=== PATIENT | female | born 1970 | race Caucasian/White ===

== ENCOUNTER 2024-06-11 10:31 | Outpatient (CLI) | payer OTHER, SELFPAY ==
--- NOTE | ~2024-06-11 | US_ITS ---
EXAMINATION:US venous doppler LE BI INDICATION:Leg swelling TECHNIQUE: Multiple grayscale, color flow and Doppler images of the right and left lower extremity de ep venous systems were obtained and reviewed. COMPARISON:No prior studies for comparison. FINDINGS: The common femoral, superficial femoral and popliteal veins demonstrate normal respiratory variation, augmentation and compressibility. Color flow is also seen within the posterior tibial, pe roneal, greater saphenous and profunda veins. There is a Rapp's cyst the right popliteal fossa measu ring 4 cm. IMPRESSION: 1: No lower extremity deep venous thrombosis. Reviewed, dictated and finalized at location B.
== END 2024-06-11 10:32 | disposition home or self-care (01) ==
LOC: ANHIMG 10:32
PROVIDERS: PCP Family Medicine; Visit Provider Physician Assistant
DX: M79.89 Other specified soft tissue disorders (principal); Z98.890 Other specified postprocedural states
CPT/HCPCS: 93970

== ENCOUNTER 2024-07-26 07:48 | Outpatient (CLI) | payer OTHER, SELFPAY ==
--- NOTE | 2024-07-26 07:51 | ECHO_ITS ---
Patient Info Name: Katarina Taylor Age: 54 years : 1970 Gender: Female Ht: 64 in Wt: 180 lbs BSA: 1.95 m2 HR: 77 bpm BP: 134 / 90 mmHg Technical Quality: Good Exam Date: 07/26/2024 8:04 AM Exam Location: Echo Lab Patient Status: Outpatient Admit Date: 07/26/2024 Staff Ordering Physician: Jarrod Hameed PA-C Regional Transfer Liaison: Radha Skelton RDCS Attending Provider: Jarrod Hameed PA-C Referring Physician: Yoseph MONET; Exam Type: CA echo doppler color flow Study Info Indications R60.0 - Localized edema Complete two-dimensional, color flow and Doppler transthoracic echocardiogram is performed. Strain analysis performed. Summary 1. Complete two-dimensional, color flow and Doppler transthoracic echocardiogram is performed. 2. Left ventricular chamber dimension is normal. 3. Left ventricular systolic function is normal, estimated at 60-65%. 4. The left ventricular diastolic function is grade I diastolic dysfunction. 5. E/e' 8 is minimally elevated. 6. Global longitudinal strain is normal at -20.2%. 7. There is mild aortic valve sclerosis. 8. There is trace mitral valve regurgitation. 9. No pulmonary hypertension, estimated pulmonary arterial systolic pressure is 29 mmHg. Left Ventricle E/e' 8 is minimally elevated. Global longitudinal strain is normal at -20.2%. Left ventricular chamber dimension is normal. Left ventricular systolic function is normal, estimated at 60-65%. The left ventricular diastolic function is grade I diastolic dysfunction. Right Ventricle Right ventricular systolic function is normal and with normal TAPSE 2.5 cm. Right ventricular chamber dimension is normal. Left Atria Left atrial chamber dimension is normal. Right Atria Right atrial chamber dimension is normal. Aortic Valve The aortic valve is trileaflet. There is mild aortic valve sclerosis. There is no aortic valve stenosis. There is no aortic valve regurgitation. Pulmonic Valve There is no pulmonic regurgitation. Mitral Valve There is no mitral valve stenosis. There is trace mitral valve regurgitation. Tricuspid Valve There is no tricuspid valve regurgitation. No pulmonary hypertension, estimated pulmonary arterial systolic pressure is 29 mmHg. Pericardium/Pleural There is no pericardial effusion. Inferior Vena Cava Normal inferior vena cava with >50% collapse upon inspiration consistent with normal right atrial pressure, 5 mmHg. Aorta The aortic root size at the sinus of Valsalva is normal. Left Ventricular Outflow Tract Name Value Normal LVOT 2D LVOT Diameter 1.9 cm LVOT Doppler LVOT Peak Gradient 4 mmHg LVOT Mean Gradient 2 mmHg LVOT VTI 21 cm LVOT VTI/AV VTI Ratio 0.8 LVOT Stroke Volume 57 ml LVOT CO 4.6 l/min LVOT CI 2.4 l/min/m2 Pulmonic Valve Name Value Normal RVOT Doppler
== END 2024-07-26 07:49 | disposition home or self-care (01) ==
PROVIDERS: PCP Family Medicine; Visit Provider Physician Assistant
DX: R60.0 Localized edema (principal); I51.89 Other ill-defined heart diseases; I35.8 Other nonrheumatic aortic valve disorders
CPT/HCPCS: 93306

== ENCOUNTER 2025-08-12 08:41 | Outpatient (CLI) | payer OTHER, SELFPAY ==
--- NOTE | ~2025-08-12 | MM_ITS ---
EXAMINATION: MM diagnostic jose armando LT w joon INDICATION: 55-year old female; BI-RADS 0, callback to evaluate Left breast mass COMPARISON: 06/14/2025 through 05/17/2023 TECHNIQUE: Digital breast tomosynthesis True lateral view and spot compression CC and MLO views of Left breast were obtained with computer-aided detection to assist in interpretation of the study. FINDINGS: There are scattered areas of fibroglandular density. The mass seen in the outer Left breast on the screening mammogram effaces on additional views, compatible with normal overlapping tissue.. IMPRESSION: Left breast finding represents superimposition of fibroglandular tissue. No further investigation necessary. RECOMMENDATION: Annual screening mammography in 12 months BI-RADS 2, BENIGN Reviewed, dictated and finalized at location C. IMPRESSION: Left breast finding represents superimposition of fibroglandular tissue. No fur ther investigation necessary. RECOMMENDATION: Annual screening mammography in 12 months BI-RADS 2, BENIGN
== END 2025-08-12 08:42 | disposition home or self-care (01) ==
LOC: MICIMG 08:41
PROVIDERS: PCP Family Medicine; Visit Provider Obstetrics & Gynecology
DX: R92.322 Mammographic fibroglandular density, left breast (principal); R92.8 Other abnormal and inconclusive findings on diagnostic imaging of breast
CPT/HCPCS: 77061; 77065; G0279

== ENCOUNTER 2025-11-02 11:02 | Day surgery (SDC) | payer OTHER, SELFPAY ==
[2025-10-28 11:07] VITALS: BMI 32.1
--- OUTSIDE RECORDS SUMMARY | 2025-11-02 11:05 | XMS_ITS | Clinical Summary ---
Author Organization [facility] Address [address] [place] [address] Care Team Providers Care Janitor And Cleaner Name Role Phone Henrik Guzman MD Primary Care Provider [phone] Allergies No known active allergies Medications multi vitamin/mineral s (THERA-M ENHANCED) tablet Take 1 tablet by mouth daily. 7 Active loratadine 10 MG tablet Take 1 tablet (10 mg total) by mouth daily as needed. 7 Active Na sulfate-K sulfate-Mg sulfate (SUPREP BOWEL PREP KIT) 17.5-3.13-1.6 GM/177ML SolutionIndicat ions:Screening for colon cancer,Hx of colonic polyp,Family hx of colon cancer Take 177 mLs by mouth every 12 (twelve) hours. Per GI instructions 354 mL 3 Active Additional Information Patient not taking.Reported on 12/27/2023 Active Problems Problem Noted Date Diagnosed Date Screening for colon cancer 05/27/2023 Overview (05/27/2023): Added automatically from request for surgery [id number] Hx of colonic polyp 05/27/2023 Overview (05/27/2023): Added automatically from request for surgery [id number] Family hx of colon cancer 05/27/2023 Overview (05/27/2023): Added automatically from request for surgery [id number] Primary osteoarthritis of right knee 03/29/2023 Peripheral tear of medial me niscus of right knee as current injury, initial encounter 03/29/2023 Stress fracture of right tib ia with delayed healing, subsequent encounter 03/29/2023 Stress fracture of right fem ur with delayed healing, subsequent encounter 03/29/2023 Rapp's cyst of knee, right 03/29/2023 Allergic rhinitis 06/16/2017 Resolved Problems Problem Noted Date Diagnosed Date Resolved Date Lumbar radiculopathy 10/28/2022 022 Encounter for preventive health examination 11/29/2016 08/01/2020 Immunizations Immunization Administration Dates Next Due MODERNA COVID-19 (12+) MRNA, LNP-S, PF, 100 MCG/ 0.5 ML DOSE 03/27/2021,02/27/2021 MODERNA COVID-19 (TYPE INSPECTOR ADRIAN FOREIGN), MRNA, LNP-S, PF, 50 MCG/ 0.25 ML DOSE 11/17/2021 Tdap (Boostrix) 06/16/2020 Family History Medical History Relation Comments Colon Cancer Cousin 1 Colon Cancer Cousin 2 Heart Attack Father Cancer Mother colon, rectum Diabetes Mother Breast Cancer Neg Hx Relation Status Comments Cousin 1 Alive Cousin 2 Alive Father Mother Alive Social History Tobacco Use Types Packs/Day Years Used Date Smoking Tobacco: Never Passive Smoke Exposure: Never Smokeless Tobacco: Never Tobacco Cessation:Counseling Given: Not Answered Comments:Never Smoked Alcohol Use Standard Drinks/Week Comments No 0 (1 standard drink = 0.6 oz pur e alcohol) None AUDIT-C Answer Date Recorded Frequency of Alcohol Consumption Never 12/20/2018 Average Number of Drinks Not on file 019 Frequency of Binge Drinking Not on file 11/23 PHQ-2 Answer Date Recorded Patient Health Questionnaire-2 Score 0 12/27/2023 Comments No Sex and Gender Information Value Date Recorded Sex Assigned at Not on file Legal Sex Female 4:23 PM CDT Gender Identity Not on file Sexual Orientation Not on file Last Filed Vital Signs Vital Sign Reading Time Taken Comments Blood Pressure 126/81 12/27/2023 10:24 AM FACILITATOR Pulse 101 12/27/2023 10:24 AM FACILITATOR Temperature 36.2 C (97.2 F) 12/27/2023 10:24 AM FACILITATOR Respiratory Rate 20 12/27/2023 10:24 AM FACILITATOR Oxygen Saturation 84% 09/14/2023 9:40 AM CDT Inhaled Oxygen Concentration - - Weight 89.4 kg (197 lb) 12/27/2023 10:24 AM FACILITATOR Height 162.6 cm (5' 4) 12/27/2023 10:24 AM FACILITATOR Body Mass Index 33.81 12/27/2023 10:24 AM FACILITATOR Plan of Treatment Health Maintenance Due Date Last Done Comments Cervical Cancer Screening Pap Smear (Age 30 to 64) Every 3 Years 1970 Hepatitis C 01/24/1986 Hepatitis B Vaccines (1 of 3 - 19+ 3-dose series) 01/24/1987 Pneumococcal Vaccine: 50+ Years (1 of 1 - PCV) 01/24/2018 Zoster Vaccines (1 of 2) 01/24/2018 Annual Physical 04/24/2021 04/24/2020, 06/19/2019 Cervical Cancer Screening Pap with HPV Testing (Age 30 to 64) Every 5 Years 10/24/2022 10/24/2017 Cervical Cancer Screening with HPV 10/24/2022 PHQ-2 (Physician Glasco) 11/21/2024 12/27/2023 COVID-19 Vaccine ( season) 2025 11/17/2021, 03/27/2021, 02/27/2021 Influenza Adult (#1) 2025 Mammogram Screening 06/14/2027 06/14/2025, 05/21/2024, 05/17/2023, Additional history exists DTaP, Tdap and Td Vaccines (2 - Td or Tdap) 06/16/2030 06/16/2020 Colorectal Cancer Screening Colonoscopy (10 Years) 09/14/2033 09/14/2023, 08/31/2017, Hepatitis A Vaccines Aged Out No long er eligible based on patient's age to complete this topic Meningococcal B Vaccine Aged Out No l onger eligible based on patient's age to complete this topic Meningococcal Vaccine Aged Out No nelly rachele eligible based on patient's age to complete this topic RSV Immunizations Under 20 Months Aged Out No longer eligible based on patient's age to complete this topic Procedures Procedure Name Priority Date/Time Associated Diagnosis Comments MG SCREENING W IDRIS REKHA DIGI Routine 06/14/2025 8:35 AM CDT Screening mammogram for breast cancer HPV MRNA E6/E7 Routine 10/24/2017 5:45 PM FACILITATOR COLONOSCOPY GENERIC (SCAN ORDER) Routine 08/31/2017 12:00 AM CDT from Last 3 Months or Most Recently Relevant to Health Maintenance Results * MG SCREENING W IDRIS REKHA DIGI (06/14/2025 8:35 AM CDT) Anatomical Region Laterality Modality Breast Bilateral Mammography 06/14/2025 11:3 2 AM CDT Impressions 06/14/2025 11:33 AM CDT =====IMPRESSION:===== Small left breast mass. Compression view and possible ultrasound. ASSESSMENT: ACR BI-RADS 0 - INCOMPLETE: NEEDS ADDITIONAL IMAGING EVALUATION Recommendation: 1: Additional Imaging Left COMMENTS: Ordered By: LUOISA BAUER Interpreted By: Kiel Dorantes MD, 06/14/2025 11:32 AM Narrative 06/14/2025 11:33 [place] [address] EXAMINATION: Digital bilateral screening mammogram with 3-D tomosynthesis EXAM DATE/TIME: 06/14/2025 7:55 AM REASON FOR EXAM: Screening COMPARISON: Priors including May 2024, April 2023, January 2022. TECHNIQUE: Digital screening mammography of both breasts was performed in addition to 3-D Tomosynthesis technique. This study was read with the assistance of a computer-aided detection system. TISSUE DENSITY: There are scattered areas of fibroglandular density. FINDINGS: On the right there is no suspicious masses, malignant appearing calcifications, skin thickening or other abnormalities are present. No significant change from the prior exam. The lateral superior left breast is a small mass that is present. Compression view and possible ultrasound. us Louisa Bauer MD MAMMO Final Result * HPV MRNA E6/E7 (10/24/2017 5:45 PM FACILITATOR) HPV MRNA E6/E7 Not Detected NOT DETECTED 10/27/2017 11:45 PM FACILITATOR [employer] GRAJEDAIndiraDUSTINASHLEIGH PARTIDA Comment: This test was performed using the APTIMA(R) HPV Assay([employer]This assay detects E6/E7 viral messenger RNA (mRNA)from 14 high-risk HPV types (16,18,31,33,35,39,45,51,52,56,58,59,66,68).For additional information please refer to:http://education.RuckPack/faq/BOT617d9(This link is being provided for informational/educational purposes only.)Test Performed by [facility],[address] [place] [id number] Simpson M.D., Ph.D., Director of [phone], [facility] [id number] FLUID SPECIMEN / Unknown 10/24/2017 5:45 PM FACILITATOR 10/24/2017 5:45 PM FACILITATOR us Generic Conversion Md BRAVO PATHOLOGY/CYTOLOGY WHIT VILLEGAS Final Result [employer] [address] , * COLONOSCOPY (08/31/2017 12:00 AM CDT) 08/31/2017 us Documents Scanned SCANNING Final Result [facility] from Last 3 Months or Most Recently Relevant to Health Maintenance Insurance [facility] Advance Directives Documents on File Type Date Recorded Patient Photographer Motion Picture Expl anation Advance Directives and Living Will 05/16/2018 12:00 AM POWER OF [employer] P[employer]ER [employer] R HE[employer] CARE Advance Directives and Living Will 05/16/2018 12:00 AM POWER OF [employer] R HE[employer] CARE Advance Directives and Living Will 11/10/2017 12:00 AM POWER OF [employer] R HE[employer] CARE Advance Directives and Living Will 11/10/2017 12:00 AM POWER OF [employer] R HE[employer] CARE Advance Directives and Living Will 10/24/2017 12:00 AM POWER OF [employer] R HE[employer] CARE Advance Directives and Living Will 10/24/2017 12:00 AM POWER OF [employer] R HE[employer] CARE Advance Directives and Living Will 08/31/2017 12:00 AM POWER OF [employer] R HE[employer] C[employer] Advance Directives and Living Will 08/31/2017 12:00 AM POWER OF [employer] R HE[employer] CARE Care Teams Janitor And Cleaner Relationship Specialty Start Date End Date Henrik Guzman MD [address] [place] [address] PCP - General 09/07/23
--- OUTSIDE RECORDS SUMMARY | 2025-11-02 11:05 | XMS_ITS | Encounter Summary ---
Author Organization [facility] Address [facility] [place] [address] Care Team Providers Care Mechanical Ordnance Assembler Name Role Phone Stuart Reaves MD Primary Care Provider Henrik Guzman MD Primary Care Provider [phone] Encounter Details Date Type Department Care Team (Late st Contact Info) Description 12/21/2022 MyChart Message Enc [facility] Medical [facility] Orthopedic & Sports Medicine - [place] [address] [place] [address] John Garnett MD [address] [address] [place], [place] [id number] surgery date Social History Tobacco Use Types Packs/Day Years Used Date Smoking Tobacco: Never Passive Smoke Exposure: Never Smokeless Tobacco: Never Comments:Never Smoked Alcohol Use Standard Drinks/Week Comments No 0 (1 standard drink = 0.6 oz pur e alcohol) NA AUDIT-C Answer Date Recorded Frequency of Alcohol Consumption Never 12/20/2018 Average Number of Drinks Not on file 019 Frequency of Binge Drinking Not on file 11/23 PHQ-2 Answer Date Recorded Patient Health Questionnaire-2 Score 0 12/09/2022 Comments No Sex and Gender Information Value Date Recorded Sex Assigned at Not on file Legal Sex Female 4:23 PM CDT Gender Identity Not on file Sexual Orientation Not on file COVID-19 Exposure Response Date Recorded In the last 10 days, have yo u been in contact with someone who was confirmed or suspected to have Coronavirus/COVID-19? No / Unsure 12/09/2022 8:40 AM CHEMISTRY QUALITY CONTROL TECHNICIAN documented as of this encounter Plan of Treatment Not on file documented as of this encounter Visit Diagnoses Not on filedocumented in this encounter Additional Health Concerns Assessment Noted Time PHQ-9 Depression Total Score: 0 09/15/20 21 2:06 PM CDT documented as of this encounter Care Teams Mechanical Ordnance Assembler Relationship Specialty Start Date End Date Stuart Reaves MD [address] [facility] [address] [place] [address] PCP - General FAMILY PRACTICE 06/05/19 09/06/23 Henrik Guzman MD [address] [address] [address] [place] [address] PCP - General 09/07/23 documented as of this encounter
--- OUTSIDE RECORDS SUMMARY | 2025-11-02 11:05 | XMS_ITS | Encounter Summary ---
Author Organization [facility] Address [facility] [place] [address] Care Team Providers Care Hot Metal Mixer Operator Helper Name Role Phone Stuart Reaves MD Primary Care Provider Henrik Guzman MD Primary Care Provider [phone] Encounter Details Date Type Department Care Team (Late st Contact Info) Description 12/15/2022 MyChart Message Enc [facility] Medical Group Orthopedic & Sports Medicine - [place] [address] [place], [place] [id number] [phone] John Garnett MD [address] [address] [place], [place] [id number] CPT code Social History Tobacco Use Types Packs/Day Years [...] Coronavirus/COVID-19? No / Unsure 12/09/2022 8:40 AM ASSESSMENT SERVICES MANAGER documented as of this encounter Plan of Treatment Not on file documented as of this encounter Visit Diagnoses Not on filedocumented in this encounter Additional Health Concerns Assessment Noted Time PHQ-9 Depression Total Score: 0 09/15/20 21 2:06 PM CDT documented as of this encounter Care Teams Hot Metal Mixer Operator Helper Relationship Specialty Start Date End Date Stuart Reaves MD [address] [facility] [address] [place] [address] PCP - General FAMILY PRACTICE 06/05/19 09/06/23 Henrik Guzman MD [address] [address] [address] [place] [address] PCP - General 09/07/23 documented as of this encounter
--- OUTSIDE RECORDS SUMMARY | 2025-11-02 11:05 | XMS_ITS | Encounter Summary ---
Author Organization [facility] Address [facility] [place] [address] Care Team Providers Care Lead Sprinkler Name Role Phone Stuart Reaves MD Primary Care Provider Henrik Guzman MD Primary Care Provider [phone] Encounter Details Date Type Department Care Team (Latest Contact Info) Description 04/19/2023 Ondangot Message Enc [facility]ispecialty Care - [facility] [address] [facility], [address] [place] [phone] Louis Jimenes MD [address] [place] [address] 5 digit procedure code Social History Tobacco Use Types Packs/Day [...] Date Recorded Patient Health Questionnaire-2 Score 0 04/15/2023 Comments No Sex and Gender Information Value Date Recorded Sex Assigned at Not on file Legal Sex Female 4:23 PM CDT Gender Identity Not on file Sexual Orientation Not on file COVID-19 Exposure Response Date Recorded In the last 10 days, have yo u been in contact with someone who was confirmed or suspected to have Coronavirus/COVID-19? No / Unsure 04/20/2023 9:25 AM CDT documented as of this encounter Plan of Treatment Not on file documented as of this encounter Visit Diagnoses Not on filedocumented in this encounter Additional Health Concerns Assessment Noted Time PHQ-9 Depression Total Score: 0 09/15/20 21 2:06 PM CDT documented as of this encounter Care Teams Lead Sprinkler Relationship Specialty Start Date End Date Stuart Reaves MD [address] [facility] [address] [place] [address] PCP - General FAMILY PRACTICE 06/05/19 09/06/23 Henrik Guzman MD [address] [address] [address] [place] [address] PCP - General 09/07/23 documented as of this encounter
--- OUTSIDE RECORDS SUMMARY | 2025-11-02 11:05 | XMS_ITS | Clinical Summary ---
Author Organization [facility] Address [address] [place] [address] Care Team Providers Care Drier Name Role Phone Stuart Reaves MD Primary Care Provider + Allergies No known active allergies Medications loratadine 10 mg capsuleIndicati ons:Allergic Conjunctivitis, Allergic Rhinitis Take 1 tablet by mouth chief port director before breakfast Active multivitamin with minerals tabletIndicatio ns:Mineral Deficiency Prevention,Judie min Deficiency Prevention Take 1 tablet by mouth chief port director before breakfast Active Active Problems Problem Noted Date Diagnosed Date Acute medial meniscus tear of right knee 024 Surgical History Surgery Date Site/Laterality Comments SECTION COLONOSCOPY 11/21/2022 - 11/20/2023 Medical History Medical History Date Comments Generalized headaches Family History Medical History Relation Name Comments Heart attack Father Colon cancer Mother Anesthesia problems Neg Hx Relation Name Status Comments Father Mother Social History Tobacco Use Types Packs/Day Years Used Date Smoking Tobacco: Never Passive Smoke Exposure: Never Smokeless Tobacco: Never Tobacco Cessation:Counseling Given: Not Answered Alcohol Use Standard Drinks/Week Comments Yes 0 (1 standard drink = 0.6 oz pur e alcohol) socially AUDIT-C Answer Date Recorded Q1: How often do you have a drink containing alc ohol? Monthly or less 01/20/2024 Q2: How many drinks containi ng alcohol do you have on a typical day when you are drinking? 1 or 2 01/20/2024 Q3: How often do you have si x or more drinks on one occasion? Never 01/20/2024 Personal Safety Answer Date Recorded Have you ever been in or are you currently in a harmful physical or emotional relationship or is someone making you feel afraid or unsafe? Denies 01/20/2024 Comments No Sex and Gender Information Value Date Recorded Sex Assigned at Not on file Legal Sex Female 7:58 PM STOCK TRADER Gender Identity Not on file Sexual Orientation Not on file Last Filed Vital Signs Vital Sign Reading Time Taken Comments Blood Pressure 142/89 01/20/2024 4:21 PM STOCK TRADER Pulse 79 01/20/2024 4:21 PM STOCK TRADER Temperature 36.2 C (97.2 F) 01/20/2024 3:08 PM STOCK TRADER Respiratory Rate 16 01/20/2024 4:21 PM STOCK TRADER Oxygen Saturation 95% 01/20/2024 4:21 PM STOCK TRADER Inhaled Oxygen Concentration - - Weight 86.2 kg (190 lb) 01/20/2024 11:03 AM STOCK TRADER Height 162.6 cm (5' 4) 01/20/2024 11:03 AM STOCK TRADER Body Mass Index 32.61 01/20/2024 11:03 AM STOCK TRADER Plan of Treatment Health Maintenance Due Date Last Done Comments Cervical Cancer Screening 1968 Colon Cancer Screening-Colonoscopy 1968 Depression Screening 1968 Hepatitis C Screening 1968 Hepatitis B Screening 01/24/1986 Regular Well Visit/Exam 18-64 01/24/1986 Zoster Vaccine (1 of 2) 01/24/2018 Breast Cancer Screening-Mammogram 05/21/2025 05/21/2024, 05/21/2024, 05/17/2023, Additional history exists Covid-19 Vaccine ( season) 2025 11/17/2021, 03/27/2021, 02/27/2021 Influenza Vaccine (#1) 2025 DTaP/Tdap/Td Vaccine (2 - Td or Tdap) 06/16/2030 06/16/2020 Pneumococcal vaccine <65 Aged Out No longer eligible based on patient's age to complete this topic Medical Devices Implanted Type Area Electronic Components Assembler Device Identifier Shelf Expiration Date Model / Serial / Lot [employer] Footprint Ultra 4.5mm [place] Suture [place] [id number] - [id number] Implanted:Qty : 1 on 01/20/2024 by Kervin Scott MD at [facility] [place]: Knee [employer] [id number] 09/21/2028 [id number] / / [id number] Procedures Procedure Name Priority Date/Time Associated Diagnosis Comments SCREENING MAMMOGRAM BILATERAL W RAGHU Schedule Routine, Read Routine (OP Routine) 06/08/2021 11:30 AM CDT Abnormal mammography from Last 3 Months or Most Recently Relevant to Health Maintenance Results * Screening Mammogram Bilateral W Raghu (06/08/2021 11:30 AM CDT) Anatomical Region Laterality Modality Breast Bilateral Mammography Narrative 06/09/2021 9:11 AM CDT Mammogram Technique: Bilateral Digital Breast Tomosynthesis, Bilateral C-view 2D Screening mammogram. Views obtained: bilateral craniocaudal and bilateral mediolateral oblique. Computer Aided Detection was performed. Mammogram Findings: The present examination has been compared to prior imaging studies performed at [facility] on 02/16/2021, and at [facility]. on 06/05/2019 and 06/06/2020. There are scattered areas of fibroglandular density. There is no suspicious abnormality in either breast. Impression: There is no mammographic evidence of malignancy. Annual screening mammography is recommended. OVERALL FINAL ASSESSMENT: BI-RADS CATEGORY 1: Negative. Procedure Note Marisabel De La Paz MD - 06/09/2021 Mammogram Technique: Bilateral Digital Breast Tomosynthesis, Bilateral C-view 2D Screening mammogram. Views obtained: bilateral craniocaudal and bilateral mediolateral oblique. Computer Aided Detection was performed. Mammogram Findings: The present examination has been compared to prior imaging studies performed at [facility] on 02/16/2021, and at [facility]. on 06/05/2019 and 06/06/2020. There are scattered areas of fibroglandular density. There is no suspicious abnormality in either breast. Impression: There is no mammographic evidence of malignancy. Annual screening mammography is recommended. OVERALL FINAL ASSESSMENT: BI-RADS CATEGORY 1: Negative. Alisson Horne MD PhD IMG MAMMO PROCEDURES Final Result from Last 3 Months or Most Recently [place]vant [place] [address] Care Teams Drier Relationship Specialty Start Date End Date Stuart Reaves MD PCP - General Family Medicine 06/19/20
--- OUTSIDE RECORDS SUMMARY | 2025-11-02 11:05 | XMS_ITS | Patient Health Record ---
Author Organization [facility] [facility] Address [address] [facility] [address] [place] [address] Care Team Providers Care Wildlife Rehabilitator Name Role Phone Henrik Guzman MD Primary Care Provider Gill Zeng Unavailable [phone] Carine Ramos Unavailable [phone] Allergies No Known Allergies Reason For Referral No Information Social History Tobacco Use: Social History Observation Description Date Details (start date - stop date) Never Smoker NA - NA Sex Assigned At : Social History Observation Description Sex Assigned At Female Social History Miscellaneous: Social Info Question Answer Notes Safety issues: Are there any firearms in the house? Ye s Social History Social Info Question Answer Notes Household: Marital Status: Number of Adults in household: 2 Number of Children in Household: 1 Level of Education: Professional Schools/Masters /PhD Household: Social Info Question Answer Notes Household Marital status: Drug/Alcohol: Social Info Question Answer Notes Drugs Have you used drugs other than those for medical reasons in the past 12 months? No AUDIT-C (Standard) Did you have a drink containing alcohol in the past year? Yes Points 1 Interpretation Positive How often did you have six or more drinks on one occasion in the past year? Never (0 point) How many drinks did you have on a typical day when you were drinking in the past year? 1 or 2 drinks (0 point) How often did you have a drink containing alcohol in the past year? Monthly or less (1 point) Caffeine Intake: 1-2 cups per day Tobacco Use: Social Info Question Answer Notes Tobacco Control (Standard) Tobacco use: Nonsmoker Additional Details Category Social Info Options Details Drug/Alcohol: Do you smoke marijuana? No Do you drink alcohol? Socially Problems Problem Type SNOMED Code ICD Code Onset Dates Problem Status W/U Status Risk Notes Problem Adjustment disorder with mixed anxiety and depressed mood (940018219) Adjustment disorder with mixed anxiety and depressed mood (F43.23) Active confirmed Vital Signs Heart Rate 87 /min 09/02/2025 Height-cm 162.56 cm 09/02/2025 Blood pressure diastolic 87 mm Hg 09/02/2025 Weight-kg 89.36 kg 09/02/2025 Height 64 in 09/02/2025 Blood pressure systolic 139 mm Hg 09/02/2025 Weight 197 lbs 09/02/2025 BMI 33.81 kg/m2 09/02/2025 Encounters Encounter Location Date Provider [facility] [address] [facility] [address] [place] [address] 09/02/2025 Gill Velasco Adjustment disorder with mixed anxiety and depressed mood F43.23 [facility] [address] [address] 10/01/2025 Carine Ramos Adjustment disorder with mixed anxiety and depressed mood F43.23 Assessments Encounter Date Diagnosis (ICD Code) Assessment Notes Treatment Notes Treatment Clinical Notes Section Notes 09/02/2025 Adjustment disorder with mixed anxiety and depressed mood (ICD-10 - F43.23) Patient here to establish care for therapy. Declines need for medication management at this time. Scheduled for therapy with Carine on 10/01 Plan to follow up as needed for medication management 10/01/2025 Adjustment disorder with mixed anxiety and depressed mood (ICD-10 - F43.23) Plan Of Treatment Next Appt Details Provider Name:Carine Ana Albajazmin, 11/11/2025 11:00:00 AM, [address], [address], [address], Provider Name:Carine Ana Albajazmin, 12/09/2025 09:00:00 AM, [employer] [address], [address], Provider Name:Carine Ana Albajazmin, 01/06/2026 09:00:00 AM, [employer], [address], [address], Provider Name:Carine Ana Albajazmin, 02/07/2026 09:00:00 AM, [employer] [address], [address], Insurance Providers Payer Name Payer Address Payer Phone Subscriber Number Group Number Insured Name Patient Relationship to Insured Coverage Start Date Coverage End Date [facility] [address] [place] [phone] [id number] Katarina Taylor Self - patient is the insured Medical (General) History Medical History History ICD Code abdominal aortic aneurysm: No atrial fibrillation: No chronic fatigue syndrome: No hyperlipidemia: No hypertension: No Parkinson's disease: No restless leg syndrome: No stroke: No subdural hematoma: No type 1 diabetes mellitus: No type 2 diabetes mellitus: No vitamin B12 deficiency: No vitamin D deficiency: No Surgical History Surgery Date(Month/Year) c section Hospitalization History Reason Date(Month/Year) surgeries
--- OUTSIDE RECORDS SUMMARY | 2025-11-02 11:05 | XMS_ITS | Encounter Summary ---
Author Organization [facility] Address [facility] [place] [address] Care Team Providers Care Corporate Affairs Manager Name Role Phone Stuart Reaves MD Primary Care Provider [phone] Henrik Guzman MD Primary Care Provider [phone] Encounter Details Date Type Department Care Team (Late st Contact Info) Description 03/27/2023 New Relict Message Enc [facility] Family & Internal Medicine [facility] [address] [place] [address] Stuart Reaves MD [address] [address] clearance for surgery Social History Tobacco Use Types Packs/Day Years [...] suspected to have Coronavirus/COVID-19? No / Unsure 03/29/2023 8:18 AM CDT documented as of this encounter Plan of Treatment Not on file documented as of this encounter Visit Diagnoses Not on filedocumented in this encounter Additional Health Concerns Assessment Noted Time PHQ-9 Depression Total Score: 0 09/15/20 21 2:06 PM CDT documented as of this encounter Care Teams Corporate Affairs Manager Relationship Specialty Start Date End Date Stuart Reaves MD [address] [facility] [address] [place] [address] PCP - General FAMILY PRACTICE 06/05/19 09/06/23 Henrik Guzman MD [address] [address] [address] [place] [address] PCP - General 09/07/23 documented as of this encounter
--- OUTSIDE RECORDS SUMMARY | 2025-11-02 11:06 | XMS_ITS | Patient Health Record ---
Author Organization [facility] Address [address] [facility] [place] [address] Phone [phone] Care Team Providers Care Bank Manager Name Role Phone SARA SPANN MD Primary Care Provider Robinson Schofield MDory Unavailable Allergies No Known Allergies Reason For Referral No Information Medications Medication SIG (Take, Route, Frequency, Duration) Notes Start Date End Date Diagnosis (ICD Code) Status Meloxicam 15 MG Tablet 1 tablet Oral Once a day; Duration: 30 days Active Social History Tobacco Use: Social History Observation Description Date Details (start date - stop date) Never Smoker NA - NA Sex Observation Social History Observation Description Sex Observation Female Social History Drugs/Alcohol: Social Info Question Answer Notes Alcohol Screen (Audit-C) Did you have a drink containing alcohol in the past year? No Points 0 Interpretation Negative Drugs Have you used drugs other than those for medical reasons in the past 12 months? No Tobacco Use: Social Info Question Answer Notes Tobacco Use/Smoking Are you a nonsmoker Section Notes: The patient is . She denies tobacco, alcohol, or illicit drug abuse. Problems Problem Type SNOMED Code ICD Code Dates Problem Status W/U Status Risk Notes Problem Osteoarthritis of knee (728475874) Bilateral primary osteoarthritis of knee (M17.0) Added On:08/11 Active confirmed Problem Primary osteoarthritis (838558927) Unilateral primary osteoarthritis, right knee (M17.11) Added On:08/11 Active confirmed Problem Pain of right knee region (finding) (079585127922174) Pain in right knee (M25.561) Added On:08/11 Active confirmed Problem Pain of left knee joint (finding) (059609155744391) Pain in left knee (M25.562) Added On:08/11 Active confirmed Problem Solitary sacroiliitis (656352044) Sacroiliitis, not elsewhere classified (M46.1) Added On:08/11 Active confirmed Problem Degeneration of lumbar intervertebral disc (82465865) Other intervertebral disc degeneration, lumbar region (M51.36) Added On:08/11 Active confirmed Problem Lumbar radiculopathy (713796844) Radiculopathy, lumbar region (M54.16) Added On:08/11 Active confirmed Problem Spinal stenosis of lumbar region (83060874) Osseous stenosis of neural canal of lumbar region (M99.33) Added On:08/11 Active confirmed Plan Of Treatment No Information Insurance Providers Payer Name Payer Address Payer Phone Subscriber Number Group Number Insured Name Patient Relationship to Insured Coverage Start Date Coverage End Date [facility] [address] [place] [address] [id number] YAJAIRA RUTHERFORD Self - patient is the insured Medical (General) History Medical History History ICD Code Rapp's Cyst Right Knee Surgical History Surgery Date(Month/Year)
[2025-11-02 11:14] VITALS: BP 126/86; PULSE 85; RESP 16; TEMP 37.2; O2SAT 98
[2025-11-02] MEDS: LACTATED RINGERS 1,000 ML 150 ML IV CONT (11:18)
--- NOTE | 2025-11-02 12:56 | P.HP_ITS ---
H&P: HPI History of Present Illness Date/Time: 11/02/25 12:56 Chief Complaint: History of colon polyps Narrative: The patient has a history of colonic polyps, the last colonoscopy was Five years ago. Her mother had colon cancer at age 85. Review of Systems Review of Systems: All systems reviewed & are unremarkable except as noted in HPI and below PMFSH Past Medical History Medical History (Updated 11/02/25 @ 12:57 by Jorje Schuler MD) Family history of colon cancer Change in bowel habits Diarrhea Surgical History Surgical History S/P right knee arthroscopy 01/19. Dr. Kervin Scott History of delivery Family History Family History Father Family history of coronary artery disease, Onset Age: 51 Mother Carcinoma of colon Diabetes mellitus Hypertension Social History Social History Smoking status: Never smoker Alcohol intake: current Drinks per week: 1 Alcohol use details: RARELY Substance use: never Substance use type: does not use Living arrangements: with family Occupation/Education: occupation Gender identity (if verbalized by the patient): Female Sexual Orientation (if Verbalized by the Patient): Straight or Heterosexual Spiritual care concerns: No Meds Home Medications and Allergies Home Medications ?Medication ?Instructions ?Recorded ?Confirmed ?Type loratadine 10 mg tablet (Allergy 10 mg PO DAILY 11/02/25 History Relief (loratadine)) cholestyramine (with sugar) 4 gram 4 g PO BID #60 ea 1 12/10/24 10/28/25 Rx powder for susp in a packet (Questran) Held on 10/28/25. Instructions: WAITING UNTIL AFTER COLONOSCOPY cyclobenzaprine 5 mg tablet 5 mg PO TID PRN muscle spa sm 10/23/25 11/02/25 History Allergies Allergy/AdvReac Type Severity Reaction Status Date / Time pseudoephedrine AdvReac Intermediate Other Verified 11/02/25 11:13 Vital Signs Vital Signs - 24 hr 11/02/25 11:14 Temperature 99.0 F Pulse Rate 85 Respiratory Rate 16 Blood Pressure 126/86 Pulse Oximetry 98 Oxygen Delivery Room Air Exam Const: General: cooperative and healthy appearing Resp: Effort & Inspection: normal respiratory effort and able to speak in complete sentences Auscultation: clear to auscultation bilaterally Cardio: Rate: regular rate Rhythm: regular rhythm GI: Inspection: normal to inspection GI Palp: No No hepatosplenomegaly present Auscultation: normal bowel sounds Rectal Exam: deferred Skin: General skin exam: normal color Psych: Appearance: grossly normal Mental Status: mental status grossly normal Assessment and Plan Assessment and plan (1) History of colonic polyps: Code(s): Z86.0100 - Personal history of colon polyps, unspecified Status: Acute Assessment and Plan: The patient is deemed a good candidate for the procedure. Consent signed. Will proceed. Prior Studies I have reviewed the following patient records and this information was taken into consideration when formulating the assessment and plan.: previous labs, previous ER visits, previous hospitalizations and previous clinic visits
--- NOTE | 2025-11-02 12:58 | WPDANESEPPF ---
Anes - Initial Pre Proc Eval Procedure: Operation Date: 11/02/25 13:30 Proposed Procedures p Diagnostic Colonoscopy - Jorje Schuler MD Date/Time: 11/02/25 12:58 Surgeon: Jorje Schuler MD Pre Op Diagnosis: Change in bowel habit Patient Data Age: 55 Gender: F Height: 1.63 m Weight: 86.6 kg Last Vital Signs Temp 37.2 C 11/02/25 11:14 Pulse 85 11/02/25 11:14 Resp 16 11/02/25 11:14 BP 126/86 11/02/25 11:14 Pulse Ox 98 11/02/25 11:14 O2 Del Method Room Air 11/02/25 11:14 Allergies Allergy/AdvReac Type Severity Reaction Status Date / Time pseudoephedrine AdvReac Intermediate Other Verified 11/02/25 11:13 Home Medications ?Medication ?Instructions ?Recorded ?Confirmed ?Type loratadine 10 mg tablet (Allergy 10 mg PO DAILY 06/27/23 11/02/25 History Relief (loratadine)) cholestyramine (with sugar) 4 gram 4 g PO BID #60 ea 10/10/25 10/28/25 Rx powder for susp in a packet (Questran) Held on 10/28/25. Instructions: WAITING UNTIL AFTER COLONOSCOPY cyclobenzaprine 5 mg tablet 5 mg PO TID PRN muscle spasm 10/23/25 11/02/25 History Patient hx anesthesia problems: none Family hx anesthesia problems: none Results Review: All pre-operative results and documents have been reviewed as part of the pre-operative evaluation. [facility] Past Medical History Medical History (Updated 11/02/25 @ 12:57 by Jorje Schuler MD) Family history of colon cancer Change in bowel habits Diarrhea Surgical History Surgical History S/P right knee arthroscopy 01/19. Dr. Kervin Scott History of delivery Family History Family History Father Family history of coronary artery disease, Onset Age: 51 Mother Carcinoma of colon Diabetes mellitus Hypertension Social History Social History Smoking status: Never smoker Alcohol intake: current Drinks per week: 1 Alcohol use details: RARELY Substance use: never Substance use type: does not use Living arrangements: with family Occupation/Education: occupation Gender identity (if verbalized by the patient): Female Sexual Orientation (if Verbalized by the Patient): Straight or Heterosexual Spiritual care concerns: No Anes - Eval Final PreProcedure Day of Procedure 11/02/25 12:58 Heart: regular rate and rhythm Lungs: clear to auscultation Airway: Mallampati scale class II Neurological: alert and oriented Last oral intake: >/= 8 hours ASA classification: II Emergent: no Anesthetic plan: proceed Anesthesia type and monitoring: monitored anesthesia care Results Review: All pre-operative results and documents have been reviewed as part of the pre-operative evaluation. Informed Consent: The patient's anesthetic plan and its attendant risks and benefits were discussed with the patient/family/POA. Questions were solicited and answers provided to the satisfaction of the patient/family/POA.
[2025-11-02 13:22] VITALS: BP 174/104; PULSE 108; RESP 16; O2SAT 100
[2025-11-02 13:32] VITALS: BP 155/101; PULSE 101; RESP 18; O2SAT 100
--- NOTE | 2025-11-02 13:33 | WPDANESPN ---
Anes - Prog Note Post-Op Date/Time: 11/02/25 13:33 Cardiovascular status: normal Respiratory status: normal Airway patency: baseline Mental status: baseline Post-Op hydration status: normal Vital Signs: Last Vital Signs Temp 37.2 C 11/02/25 11:14 Pulse 108 H 11/02/25 13:22 Resp 16 11/02/25 13:22 BP 174/104 H 11/02/25 13:22 Pulse Ox 100 11/02/25 13:22 O2 Del Method Room Air 11/02/25 13:22 Pain Score (VAS): 0 I/O: Intake & Output 11/01/25 11/02/25 11/02/25 23:59 07:59 15:59 Intake Total 0 Balance 0 Patient Feedback: Patient satisfied with anesthetic care.
[2025-11-02 13:42] VITALS: BP 158/82; PULSE 100; RESP 18; O2SAT 100
== END 2025-11-02 14:01 | disposition home or self-care (01) ==
PROVIDERS: PCP Family Medicine; Referring Provider Nurse Practitioner Family; Visit Provider Internal Medicine Gastroenterology
PROC: 0DJD8ZZ Inspection of Lower Intestinal Tract, Via Natural or Artificial Opening Endoscopic (ICD-10-PCS; CPT 45378; principal; 2025-11-02 13:30)
DX: Z12.11 Encounter for screening for malignant neoplasm of colon (principal); Z86.0100 Personal history of colon polyps, unspecified
CPT/HCPCS: 45378